=== PATIENT | male | born 1995 | race Caucasian/White ===

== ENCOUNTER 2019-11-16 14:15 | Emergency (ER) | payer BC, SELFPAY ==
[2019-11-16 14:22] VITALS: BP 143/81; PULSE 116; RESP 20; TEMP 36.5; O2SAT 95
--- NOTE | 2019-11-16 14:29 | ED.MALEGU ---
HPI - Male Genitourinary General Chief complaint: Urogenital-Male Stated complaint: possible STD Time Seen by Provider: 11/16/19 14:29 Source: patient and RN notes reviewed Mode of arrival: ambulatory Limitations: no limitations History of Present Illness HPI Narrative: Patient had unprotected sex approximately 1 week ago. Began having penile discharge 4 days ago. He denies any fever chills. He does have burning with urination. Complaint: penile discharge and dysuria Onset (ago): day(s) (4) Duration: intermittent Severity: moderate Quality: burning Relieving factors: none Exacerbating factors: urination Context: new sexual partner Associated symptoms: Reports denies other symptoms Related Data Sexually active: Yes Home Medications Medication Instructions Recorded Confirmed No Home Medications 11/16/19 11/16/19 Allergies Allergy/AdvReac Type Severity Reaction Status Date / Time No Known Allergies Allergy Unverified 08/29/14 14:04 Review of Systems Review of Systems: All systems reviewed & are unremarkable except as noted in HPI and below PMFSH Past Medical History Medical History (Updated 11/16/19 @ 15:07 by Hakeem Quick MD) Asthma Surgical History Surgical History (Updated 11/16/19 @ 14:43 by Hakeem Quick MD) No history of previous surgery Social History Social History (Updated 11/16/19 @ 14:44 by Hakeem Quick MD) Smoking packs per day: 0.5 Smoking cigarettes per day: 10.0 Smoking status: Current every day smoker Alcohol intake: current Alcohol use details: occasional Substance use: current Substance use type: methamphetamine Gender identity (if verbalized by the patient): Male Exam Const: General: healthy appearing, no acute distress and alert Orientation/consciousness: patient oriented x3 Limitations: no limitations HENMT: Head: normal to inspection Ears: TM abnormal General nose exam: Normal external nose present Face and sinus: normal facial exam Mouth: Yes moist mucous membranes Eyes: Conjunctivae: conjunctivae normal Pupils: Equal, round and reactive pupils present EOM: EOMs intact bilaterally Neck: Neck: normal visual inspection Resp: Effort & Inspection: normal respiratory effort Auscultation: clear to auscultation bilaterally Cardio: Rate: regular rate Rhythm: regular rhythm Heart sounds: no murmurs GI: GI Palp: Yes Soft to palpation Auscultation: normal bowel sounds : Other: Declined exam Back/Spine/Pelvis: Cervical Spine: cervical ROM normal Thoracic/Lumbar Spine: thoraco-lumbar ROM normal Skin: General skin exam: normal color Rashes: no rashes Neuro: General: patient oriented x3, moves all extremities and no focal motor deficits Speech: normal speech Gait exam (Neuro): Normal gait present Extrem: General: normal to inspection and no clubbing, cyanosis or edema Psych: Appearance: grossly normal and well kempt Mental Status: mental status grossly normal Affect: normal affect Attitude: cooperative Thought content: Yes Normal thought content present Course Vital Signs Vital signs: Vital Signs Temperature 36.5 C 11/16/19 14:22 Pulse Rate 116 H 11/16/19 14:22 Respiratory Rate 20 11/16/19 14:22 Blood Pressure 143/81 H 11/16/19 14:22 Pulse Oximetry 95 11/16/19 14:22 Temperature 36.5 C 11/16/19 14:22 Pulse Rate 116 H 11/16/19 14:22 Respiratory Rate 20 11/16/19 14:22 Blood Pressure 143/81 H 11/16/19 14:22 Pulse Oximetry 95 11/16/19 14:22 MDM - Male Genitourinary Lab Data Labs: Lab Results 11/16/19 Range/Units 14:45 C.trachomatis RNA (TMA) Pending N.gonorrhoeae RNA (TMA) Pending Discharge Plan Discharge Clinical Impression: Urethritis Patient Disposition: Home, Self-Care Condition: Stable Instructions: Gonorrhea (ED) Additional Instructions: hit another STD check in 2 weeks for test of cure. No intercourse until test of cure is negative.
--- NOTE | 2019-11-16 14:33 | PC.NURSE ---
Per Dr Quick, pt may provide a dirty catch urine for STD testing if it has been >2 hours since last urinating or he may choose to have a penile swab. 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 Requesting to wait to provide a urine sample. Dr Quick aware.
[2019-11-16] MEDS: cefTRIAXone 250 MG VIAL IM (15:00)
[2019-11-16] MEDS: LIDOCAINE HCL 1% LOCAL INJ 20 ML VIAL (15:00)
[2019-11-16] MEDS: AZITHROMYCIN 250 MG TABLET 1000 MG PO (15:00)
[2019-11-16 15:08] VITALS: RESP 20
== END 2019-11-16 15:08 | disposition home or self-care (01) ==
PROVIDERS: Emergency Provider Emergency Medicine
DX: N34.2 Other urethritis (principal)
CPT/HCPCS: 87491; 87591; 96372; 99282; 99283; A9270; J0696

== ENCOUNTER 2021-03-13 13:50 | Emergency (ER) | payer BC, SELFPAY ==
[2021-03-13] VITALS (20 sets, daily range): BP systolic 117–138; BP diastolic 80–99; PULSE 79–110; RESP 16–24; TEMP 36.4; O2SAT 100
--- NOTE | ~2021-03-13 | CT_ITS ---
EXAMINATION: CT brain wo con DATE: 03/13/2021 15:50 INDICATION: Altered mental status. TECHNIQUE: Computed tomography (CT) of the head was performed without intravenous contrast. The mA wa s adjusted according to patient size. Iterative reconstruction technique was employed. The dose-lengt h product was 605 mGy-cm. COMPARISON: Head CT 12/22/2019 FINDINGS: There is no intracranial hemorrhage, acute infarction, or abnormal intracranial mass lesion . The ventricles are normal in size. The orbits are normal. There is mild mucosal thickening in the p aranasal sinuses. The mastoid air cells are normal. IMPRESSION: 1. Normal brain. Reviewed, dictated and finalized at location B. IMPRESSION: 1. Normal brain.
--- NOTE | ~2021-03-13 | XR_ITS ---
XR shoulder RT min 2V DATE: 03/13/2021 18:10 INDICATION: Right shoulder pain following fall TECHNIQUE: 3 views COMPARISON: None FINDINGS: No fracture or dislocation, periosteal reaction or bone destruction or abnormal soft tissue calcification. Incidentally noted is an azygos lobe, normal variant. IMPRESSION: Negative right shoulder Reviewed, dictated and finalized at location A. IMPRESSION: Negative right shoulder
--- NOTE | ~2021-03-13 | XR_ITS ---
EXAMINATION: XR chest 1V portable DATE: 03/13/2021 15:17 INDICATION: Transient alteration of awareness. TECHNIQUE: A single frontal view of the chest was obtained. COMPARISON: Chest 2 views 12/28/09 FINDINGS: The chest demonstrates clear lungs without pneumonia, pleural effusion, or pneumothorax. Th e heart size is normal. IMPRESSION: 1. No acute cardiopulmonary disease. Reviewed, dictated and finalized at location B.
--- NOTE | 2021-03-13 14:00 | ED.SOB ---
HPI - SOB/Dyspnea General Chief Complaint: Overdose Stated Complaint: RESP DISTRESS Time Seen by Provider: 03/13/21 13:56 Source: EMS Mode of arrival: EMS Limitations: altered mental status and clinical condition History of Present Illness HPI Narrative: Patient is a 25-year-old male who presents to us for altered mental status. Patient presents via EMS after police were initially called for a reported drug overdose in this patient. Patient had been given Narcan in scene and then fled the scene. Patient then found unresponsive again by police was given 8 mg of Narcan and then awakened. At that point in time he was transported to the [facility] when he was unresponsive in the back of his quadrant car thus EMS was called and he was transported to our facility. At the time of assessment, patient is moaning, and resist painful stimuli. He is protecting his airway. He resisted a nasal trumpet per EMS. Oxygen saturation is 100%. He has intact reflexes, and won't follow commands, but then will does ask me how I am doing. Additional history is unobtainable. Related Data Home Medications Medication Instructions Recorded Confirmed No Home Medications 11/16/19 11/16/19 Allergies Allergy/AdvReac Type Severity Reaction Status Date / Time No Known Allergies Allergy Unverified 08/29/14 14:04 Review of Systems Review of Systems: ROS unobtainable: Yes unobtainable due to medical condition and unobtainable due to mental status PMFSH Past Medical History Medical History Asthma Surgical History Surgical History No history of previous surgery Social History Social History Smoking packs per day: 0.5 Smoking cigarettes per day: 10.0 Smoking status: Current every day smoker Alcohol intake: current Alcohol use details: occasional Substance use: current Substance use type: methamphetamine Gender identity (if verbalized by the patient): Male Exam Narrative: GENERAL: Eyes closed on bed HEAD: Normocephalic, atraumatic. EYES: 2+ PERRLA ENT: Nares clear, no rhinorrhea or epistaxis. Mucous membranes moist. NECK: Supple. CHEST: Patient is making a moaning noise but has respirations at a rate of 20, no significant respiratory distress, lungs are clear to auscultation bilaterally HEART: Regular rate, sinus rhythm ABDOMEN:Non distended, non tender EXTREMITIES: Normal range of motion. No edema.Mild tenderness overlying the right clavicle. No squaring off of the shoulder. Intact sensation over the deltoid. SKIN: Warm, dry, no rash. NEURO:Deep tendon Reflexes intact. Moving all extremities spontaneously. Unable to assess medical assistant float strength, lower extremity strength. Course Vital Signs Vital signs: Vital Signs Temperature 36.4 C 03/13/21 13:49 Pulse Rate 86 03/13/21 13:49 Respiratory Rate 20 03/13/21 13:49 Blood Pressure 138/99 H 03/13/21 13:49 Pulse Oximetry 100 03/13/21 13:49 Temperature 36.4 C 03/13/21 13:49 Pulse Rate 88 03/13/21 16:31 Respiratory Rate 16 03/13/21 16:31 Blood Pressure 117/80 03/13/21 16:30 Pulse Oximetry 100 03/13/21 16:31 MDM - SOB/Dyspnea MDM Narrative Medical decision making narrative: Patient presenting for evaluation of altered mental status with likely drug ingestion. Patient responsive to Narcan. Initially, patient is altered but then reassessed and is clearing, following commands, refusing to speak to me. Patient imaging is reassuring. No electrolyte derangement. No acute kidney injury. No evidence of rhabdomyolysis. No urinary tract infection. No evidence of traumatic injury on exam. Patient is not intoxicated. Pt without vomiting or other concerning symptoms at times of reassessment. XR of the right shoulder is negative. Pt to be discharged to law enforcement. Medical Rec
--- NOTE | 2021-03-13 14:04 | ECG_ITS ---
Measurements Intervals [place] Rate: 80 P: 79 VT: 192 QRS: 76 QRSD: 122 T: 64 QT: 369 QTc: 427 Interpretive Statements SINUS RHYTHM INCOMPLETE RIGHT BUNDLE BRANCH BLOCK DELAYED PRECORDIAL R/S TRANSITION ST ELEVATION IN DIFFUSE LEADS, PROBABLY EARLY REPOLARIZATION BORDERLINE ECG Electronically Signed On 03-13-2021 20:43:22 CDT by Napoleon Mcrae D.O.
[2021-03-13] MEDS: SODIUM CHLORIDE 0.9% IV 1,000 ML 999 ML IV CONT (14:25)
[2021-03-13] MEDS: THIAMINE HCL 200 MG/2 ML VIAL 100 MG IV PUSH (14:25)
[2021-03-13] MEDS: NALOXONE HCL INJ 2 MG/2 ML AMP IV PUSH (14:25)
[2021-03-13] MEDS: THIAMINE HCL INJ 100 MG, FOLIC ACID INJ 1 MG, MULTIVITAMINS-12 INJ VIAL 1 5 ML, MULTIVI... IV CONT (14:55)
[2021-03-13 15:30] LABS: Glucose Point of Care 103 mg/dl (65-105)
[2021-03-13 15:34] LABS: Add Urine Microscopic? YES; Appearance Urine Clear (Clear); Bilirubin Urine Negative (Negative); Blood Urine Negative (Negative); Color Urine Amber (Yellow); Glucose Urine UA Negative (Negative); Ketones Urine Negative (Negative); Leukocyte Esterase Ur Negative LEU/UL (Negative); Nitrate Urine Negative (Negative); Protein Urine 1+ mg/dL (Negative); RBC Urine 0-2 /hpf (0-2); Specific Grav Ur 1.029 (1.001-1.035); Squamous Epithelial Cell Urine Rare /hpf (Few); WBC Urine 0-3 /hpf
[2021-03-13 15:53] LABS: Barbiturate Screen Urine Negative (Negative); Benzodiazepines Screen Urine Negative (Negative)
[2021-03-13 15:57] LABS: Basophils Absolute Auto 0.1 K/mm3 (0.0-0.1); Basophils Percent Auto 0.7 % (0.2-1.2); Eosinophils Percent Auto 0.2 % (0-4.4); Hematocrit 51.9 % (42.0-52.0); Hemoglobin 17.1 g/dL (14.0-18.0); Immature Granulocyte Absolute 0.02 K/mm3 (0.00-0.031); Immature Granulocyte Percent A 0.2 % (0-0.5); Lymphocytes Absolute Auto 1.58 K/mm3 (0.9-3.2); Lymphocytes Percent Auto 13.1 % (18.3-44.2); Mean Corpuscular HGB Conc 32.9 g/dl (32-36); Mean Corpuscular Hemoglobin 30.2 pg (26-34); Mean Corpuscular Volume 91.5 fl (80-100); Mean Platelet Volume 10.7 fl (7.4-10.4); Monocytes Absolute Auto 0.9 K/mm3 (0.1-0.6); Monocytes Percent Auto 7.2 % (2.6-8.5); Neutrophils Absolute Auto 9.5 K/mm3 (1.3-6.7); Neutrophils Percent Auto 78.6 % (45.5-73.1); Platelet Count Result 273 k/mm3 (150-375); Red Blood Count 5.67 M/mm3 (4.6-6.20); Red Cell Distribution Width 12.9 % (11.5-14.5); White Blood Count 12.1 K/mm3 (4.5-10.0)
[2021-03-13 15:58] LABS: Cannabinoid Screen Urine Positive (Negative); Cocaine Screen Urine Negative (Negative); Methadone Screen Urine Negative (Negative); Opiate Screen Urine Negative (Negative); Phencyclidine Screen Urine Negative (Negative)
[2021-03-13 16:05] LABS: INR 0.9; Prothrombin Time 12.5 Seconds (11.1-14.7)
[2021-03-13 16:06] LABS: Partial Thromboplastin Time 26.3 SECONDS (22.3-36.8)
[2021-03-13 16:13] LABS: Alanine Aminotransferase 137 U/L (4-50); Albumin Level 4.5 g/dL (3.5-5.1); Alkaline Phosphatase 76 U/L (38-126); Anion Gap 10 mmol/L (8-16); Aspartate Amino Transferase 61 U/L (17-59); Bilirubin,Total 1.4 mg/dL (0.2-1.3); Blood Urea Nitrogen 12 mg/dL (9-20); Calcium 9.4 mg/dL (8.4-10.2); Carbon Dioxide 24 mmol/L (22-30); Chloride 105 mmol/L (98-107); Creatine Kinase 82 U/L (55-170); Estimated Glomerular Filt Rate > 60; Glucose 102 mg/dL (65-110); Potassium 4.1 mmol/L (3.4-5.0); Sodium 139 mmol/L (137-145)
[2021-03-13 16:22] LABS: Lactic Acid Reflex 2.3 mmol/L (0.7-2.1)
[2021-03-13 16:23] LABS: Acetaminophen < 10 ug/mL (10-30); Ethanol < 10 mg/dL (<10); Salicylate < 1.0 mg/dL (2-20)
[2021-03-13 16:25] LABS: Troponin I < 0.012 ng/mL (0.000-0.034)
[2021-03-13 16:43] LABS: Thyroid Stimulating Hormone 0.809 uIU/mL (0.465-4.680)
[2021-03-13 17:09] LABS: Amphetamine Screen Urine Positive (Negative)
[2021-03-13 17:23] LABS: Ammonia 15 umol/L (9-30)
[2021-03-13 18:55] LABS: Reflex Lactic Acid Yes or No Add Lactic
== END 2021-03-13 18:40 ==
PROVIDERS: Emergency Provider Emergency Medicine
DX: T43.621A Poisoning by amphetamines, accidental (unintentional), initial encounter (principal); F15.10 Other stimulant abuse, uncomplicated; F17.210 Nicotine dependence, cigarettes, uncomplicated; Z87.09 Personal history of other diseases of the respiratory system
CPT/HCPCS: 36415; 70450; 71045; 73030; 80053; 80307; 81001; 82140; 82550; 82948; 83605; 84443; 84484; 85025; 85610; 85730; 93005; 96365; 96366; 96375; 99284; J2310; J3411; J3475; J7030; J7121